=== PATIENT | male | born 1985 | race Two or more races ===

== ENCOUNTER 2024-03-06 14:45 | Emergency (ER) | payer SELFPAY ==
[2024-03-06 14:45] VITALS: BMI 24.3
[2024-03-06 15:27] VITALS: BP 106/88; PULSE 86; RESP 19; TEMP 36.4; O2SAT 99
[2024-03-06 15:28] VITALS: BMI 24.0
--- NOTE | 2024-03-06 15:42 | EDNOTE_ITS ---
ED General RME/HPI General Chief complaint: General Adult/Misc Complain Stated complaint: I WAS GIVEN DRUGS YESTERDAY Time Seen by Provider: 03/06/24 15:35 Source: patient Arrival date/time: 03/06/24 14:45 38-year-old male presents emergency department reporting might have drank unknown drug or substance yesterday. Patient also endorses nausea. Patient denies any fever, chills, vomiting, diarrhea, or any other associated symptom. Mode of arrival: ambulatory Limitations: no limitations Related Data Home Medications ?Medication ?Instructions ?Recorded ?Confirmed naproxen 500 mg tablet 500 mg PO QDAY 03/21/22 03/21/22 Allergies Allergy/AdvReac Type Severity Reaction Status Date / Time No Known Allergies Allergy Verified 03/06/24 14:48 Review of Systems Review of Systems Systems Reviewed: All systems reviewed, normal except as documented Constitutional Constitutional: Reports system reviewed and no additional complaints, except as documented, Denies body ache(s), Denies chills and Denies fever(s) Eyes Eyes: Reports system reviewed and no additional complaints, except as documented and Denies change in vision ENT Ears, Nose, Mouth, and Throat: Reports system reviewed and no additional complaints, except as documented, Denies disequilibrium, Denies dizziness, Denies sore throat and Denies vertigo Cardiovascular Cardiovascular: Reports system reviewed and no additional complaints, except as documented, Denies chest pain and Denies dyspnea Respiratory Respiratory: Reports system reviewed and no additional complaints, except as documented, Denies chest congestion, Denies cough and Denies dyspnea Gastrointestinal Gastrointestinal: Reports system reviewed and no additional complaints, except as documented, Denies abdominal pain, Denies nausea and Denies vomiting Musculoskeletal Musculoskeletal: Reports system reviewed and no additional complaints, except as documented, Denies abnormal gait and Denies arthralgias Integumentary/Breasts Skin/Breast: Reports system reviewed and no additional complaints, except as documented, Denies erythema, Denies rash and Denies wounds Neurologic Neurologic: Reports system reviewed and no additional complaints, except as documented, Denies abnormal gait, Denies disequilibrium, Denies dizziness and Denies vertigo Past Medical History Past Medical History CARDIAC: Negative Cardiac Disorders or Congestive Heart Failure RESPIRATORY: Negative Chronic Obstructive Pulmonary Disease (COPD) or Asthma GENITOURINARY: Negative Renal Disease ENDOCRINE: Negative Diabetes Mellitus Type 1 or Diabetes Mellitus Type 2 HEMATOLOGIC: Negative Sickle Cell Disease Social History SMOKING STATUS: Never smoker ED Exam General Limitations: Present no limitations General appearance: Present alert and in no apparent distress Head Head exam: Present atraumatic Eye Eye exam: Present normal appearance, PERRL and EOMI ENT ENT exam: Present normal exam, normal oropharynx and mucous membranes moist Neck Neck exam: Present normal inspection, full ROM and trachea midline Chest Chest inspection: Present normal inspection and symmetric chest wall rise Respiratory Respiratory exam: Present normal lung sounds bilaterally Cardiovascular Cardiovascular exam: Present regular rate, normal rhythm and normal heart sounds Abdominal Exam Abdominal exam: Present soft and normal bowel sounds Extremities Exam Extremities exam: Present normal inspection and full ROM Back Exam Back exam: Present normal inspection and full ROM Neurological Exam Neurological exam: Present alert, oriented X3 and CN II-XII intact Psychiatric Psychiatric exam: Present normal affect and normal mood Skin Skin exam: Present warm, dry, intact and normal color Course Quality Measures none Orders Category Date Time Status Drug Screen,Urine Stat Lab 03/06/24 16:40 Completed Ondansetron Odt [Zofran Odt] Med 03/06/24 15:43 Discontinued 4 mg PO X1 ONE Vital Signs Vital signs: Vital Signs Temperature 97.6 F 03/06/24 15:27 Pulse Rate 86 03/06/24 15:27 Respiratory Rate 19 03/06/24 15:27 Blood Pressure 106/88 H 03/06/24 15:27 Pulse Oximetry (%) 99 03/06/24 15:27 Oxygen Delivery Method Room Air 03/06/24 15:27 99% room air within normal limits MDM Patient data External records reviewed:: [facility] previous records Clinical information provided by:: patient Social determinants that could affect healthcare access:: substance use Patient has the following chronic illnesses:: See chart How is presenting disease/condition affected by chronic disease/condition?: uneffected by Evaluation data The following diagnostics were reviewed and interpreted by me:: lab results Lab and/or radiology exams considered but not ordered:: Ordered Interpretation Summary: Interpreted by me Medications Medications considered but not ordered:: Ordered Medication administrations:: Medication Administration History Discontinued Medications Ondansetron HCl (Ondansetron Odt 4 Mg Tabrap) 4 mg PO X1 ONE; Protocol Stop: 03/06/24 15:44 Last Admin: 03/06/24 16:00 Dose: 4 mg Documented By: Given Consultations Consultation(s) initiated? (list below): No Diagnosis Differential Diagnosis ED Complaint MDM: Drug intoxication, alcohol into xication, appendicitis, pancreatitis Most likely diagnosis given after review of the tests above:: Amphetamine use Admission Indicated Admission indicated?: not indicated Explain why admission is indicated or not indicated:: No admission criteria Admission Request Was there a request for admission?: No Disposition Plan Disposition Plan: Discharge Discharge Attestation Discharge Attestation: The patient and all family members were given an opportunity to ask questions and understood the discharge instructions. Discharge instructions specifically effects, indications for sooner follow up or return to the emergency department, and the expected course of current diagnosis. Patient condition: Stable Medical Decision Making MDM Narrative MDM Narrative: 38-year-old male presents emergency department reporting might have drank unknown drug or substance yesterday. Patient also endorses nausea. Patient denies any fever, chills, vomiting, diarrhea, or any other associated symptom. Patient is abdomen is soft and nontender. No adventitious lung sounds on auscultation. Patient GCS of 15 and tolerated oral intake after Zofran. Patient stable for discharge. Patient urine toxicology positive for methamphetamines. Differential Diagnosis Differential Diagnosis: Drug intoxication, alcohol intoxication, appendicitis, pancreatitis Lab Data Labs: Lab Results 03/06/24 Range/Units 16:40 Urine Opiates Screen Negative (Negative) Urine Fentanyl Screen Negative (Negative) Ur Barbiturates Screen Negative (Negative) U Amphetamin/Meth Scrn Positive A (Negative) U Benzodiazepines Scrn Negative (Negative) U Cocaine Metab Screen Negative (Negative) U Marijuana (THC) Screen Negative (Negative) Discharge Plan Plan Patient Disposition: HOME (Self Care) Disposition Comment: Stable Prescriptions/Referrals Prescriptions/Med Rec: No Action naproxen 500 mg tablet 500 mg PO QDAY Referrals: No Primary/Family,Physician [Primary Care Provider] - In 1 week Problem List Clinical Impression: Methamphetamine use Patient/Caregiver Discharge Instructions Discharge Activity: activity as tolerated Education Materials: Addiction: Getting Help, ED Drug Abuse Additional Instructions: Urine toxicology was positive for methamphetamines. Drink plenty of water and get plenty of rest. Follow-up with primary care provider in 2 to 3 days. Return to emergency department for any worsening symptoms or as needed. Print Language: Hungarian Stand Alone Forms: Annette Award Info., Patient Portal Info Letter PA/CITY JAILER Supervising Physician PA/CITY JAILER Supervising Physician: Dr. Basurto
[2024-03-06] MEDS: ONDANSETRON ODT 4 MG TABRAP PO (16:00)
[2024-03-06 17:08] LABS: Amphetamine/Methamp Scrn,U Positive (Negative); Barbiturate Screen,Urine Negative (Negative); Benzodiazepines Screen,Urine Negative (Negative); Benzoylecgonine Screen, Ur Negative (Negative); Fentanyl Screen,Urine Negative (Negative); Opiate Screen,Urine Negative (Negative); THC Screen,Urine Negative (Negative)
[2024-03-06 17:14] VITALS: BP 105/52; PULSE 85; RESP 18; TEMP 36.3; O2SAT 97
== END 2024-03-06 17:40 | disposition home or self-care (01) ==
PROVIDERS: Emergency Provider Emergency Medicine
DX: F15.90 Other stimulant use, unspecified, uncomplicated (principal); R11.0 Nausea
CPT/HCPCS: 80307; 81001; 99283; Q0162